=== PATIENT | male | born 1990 | race Caucasian/White ===

== ENCOUNTER 2018-03-01 10:13 | Emergency (ER) | payer SELFPAY ==
[2018-03-01 10:27] VITALS: TEMP 98.5
[2018-03-01] MEDS ORDERED: IPRATROPIUM/ALBUTEROL 3 ML VIAL NEB ONE (10:28)
--- NOTE | 2018-03-01 10:31 | ED.PDOC ---
History of Present Illness - General Chief Complaint: Respiratory Problem Stated Complaint: sore throat, cough Time Seen by Provider: 03/01/18 10:27 Source: patient Exam Limitations: no limitations - History of Present Illness Comments: patient comes in today for cough, congestion, chest pain with cough, and temp up to 102. Patient states he started getting sick last night. He has positive body aches but no nausea, vomiting, or diarrhea. He does have sore throat. Patient otherwise is healthy although he does smoke tobacco products. Patient states she's been smoking now for about a month but normally will only had a couple of cigarettes a day. Patient does not have any past medical history and has no allergies. He takes no medications. Timing/Duration: yesterday Cough Quality/Degree: productive cough Possible Cause: no prior episodes Improving Factors: nothing Worsening Factors: nothing Associated Symptoms: cough, fever/chills, nasal congestion, sore throat Respiratory Risk Factors: no cause identified Allergies/Adverse Reactions: Allergies NO KNOWN ALLERGY Allergy (Verified 06/27/15 13:42) Home Medications: Ambulatory Orders Albuterol Inhaler [Ventolin Hfa Inhaler] 108 mcg IN TID 10 Days #1 inh 03/01/18 Prednisone [Deltasone] 20 mg PO DAILY 5 Days #5 tab 03/01/18 Review of Systems - Review of Systems Constitutional: States: fever, malaise EENTM: States: nose congestion, throat pain. Denies: eye pain Respiratory: States: cough. Denies: short of breath, wheezing Cardiology: States: chest pain. Denies: edema, palpitations Gastrointestinal/Abdominal: States: no symptoms reported. Denies: abdominal pain, diarrhea, nausea, vomiting Genitourinary: States: no symptoms reported Musculoskeletal: States: no symptoms reported Past Medical History (General) - Patient Medical History Hx Asthma: No Hx Diabetes: No Surgical History: no surgical history - Vaccination History Hx Tetanus, Diphtheria Vaccination: No Hx Influenza Vaccination: No Hx Pneumococcal Vaccination: No - Social History Hx Tobacco Use: Yes Hx Chewing Tobacco Use: No Hx Alcohol Use: Yes - occasional Hx Substance Use: No Hx Substance Use Treatment: No Hx Depression: No - Female History Patient : No Family Medical History - Family History Mother Living Status: Still Living Hx Family;Other: none Physical Exam - Physical Exam General Appearance: Alert, No apparent distress Eye Exam: bilateral normal ENT Exam: TMs normal, nasal congestion, nasal drainage, pharyngeal erythema - no exudate Neck: non-tender, full range of motion, supple, lymphadenopathy (R), lymphadenopathy (L) Respiratory: no accessory muscle use, rhonchi - bilateraly with occasional wheezes no crackles Cardiovascular/Chest: normal peripheral pulses, regular rate, rhythm, no edema, no gallop, no murmur Gastrointestinal/Abdominal: normal bowel sounds, non tender, soft Extremity: normal range of motion, non-tender, normal inspection Neurologic: alert, oriented x 3 Progress - Progress Progress: 03/01/18 11:09 lungs cleared after treatment, negative strep and flu test. Discussed smoking cessation and viral nature of illness - Results/Orders Results/Orders: 03/01/18 10:40 STREP A SCREEN CULTURE Stat Laboratory Results Group A Strep Rapid Negative (NEGATIVE) 03/01/18 10:40 Microbiology 03/01/18 10:40 Nose - Final Departure - Departure Clinical Impression: Upper respiratory infection Qualifiers: URI type: unspecified viral URI Qualified Code(s): J06.9 - Acute upper respiratory infection, unspecified Disposition: Discharge to Home or Self Care Condition: Good Departure Forms: ED Discharge - Pt. Copy, Patient Portal Self Enrollment Diet: regular diet Prescriptions: Albuterol Inhaler [Ventolin Hfa Inhaler] 108 mcg IN TID 10 Days #1 inh Prednisone [Deltasone] 20 mg PO DAILY 5 Days #5 tab Home Medications: Ambulatory Orders Albuterol Inhaler [Ventolin Hfa Inhaler] 108 mcg IN TID 10 Days #1 inh 03/01/18 Prednisone [Deltasone] 20 mg PO DAILY 5 Days #5 tab 03/01/18 Additional Instructions: stop smoking. Return to ER for shortness of breath, worsening of symptoms. Follow up with PCP in clinic if fever does not resolve in 3 days.
[2018-03-01 11:28] VITALS: BP 120/88; O2SAT 98
== END 2018-03-01 11:18 | disposition home or self-care (01) ==
LOC: ER 10:13
DX: J06.9 Acute upper respiratory infection, unspecified (principal); F17.200 Nicotine dependence, unspecified, uncomplicated
CPT/HCPCS: 87070; 87502; 87880; 94640; J7620

== ENCOUNTER → 2019-11-02 | Outpatient (CLI) | payer BC | LOC: YCFC.O 12:36 | PROVIDERS: ATTEND Nurse Practitioner | DX: Z03.818 Encounter for observation for suspected exposure to other biological agents ruled out (principal) ==

== ENCOUNTER 2020-06-18 05:10 | Emergency (ER) | payer SELFPAY ==
[2020-06-18] MEDS ORDERED: ONDANSETRON ODT 8 MG TAB SL ONE (05:26)
[2020-06-18] MEDS ORDERED: ALUM & MAG HYDROX-SIMETHICONE 30 ML, LIDOCAINE VISCOUS 2% 15 ML PO ONE ×2 (05:26)
[2020-06-18] MEDS ORDERED: FAMOTIDINE 20 MG TAB PO ONE (05:26)
[2020-06-18 05:27] VITALS: TEMP 98.2
--- NOTE | 2020-06-18 05:30 | ED.PDOC ---
History of Present Illness - General Chief Complaint: Abdominal Pain Stated Complaint: abd pain Time Seen by Provider: 06/18/20 05:22 Source: patient Exam Limitations: no limitations - History of Present Illness Initial Comments: The patient is a 29-year-old male presented emergency room in police custody for lab draw. Since in custody he is reporting that he is having some epigastric discomfort. Mild nausea but no vomiting. He has had some gastritis type symptoms intermittently for the past 3 to 4 weeks. No fever. No rash. No trauma. Timing/Duration: getting worse, intermittent Severity: moderate Improving Factors: nothing Worsening Factors: nothing Associated Symptoms: malaise, nausea/vomiting Allergies/Adverse Reactions: Allergies NO KNOWN ALLERGY Allergy (Verified 06/27/15 13:42) Home Medications: Ambulatory Orders Albuterol Inhaler [Ventolin Hfa Inhaler] 108 mcg IN TID 10 Days #1 inh 03/01/18 Prednisone [Deltasone] 20 mg PO DAILY 5 Days #5 tab 03/01/18 Famotidine 20 mg PO BID #60 tab 06/18/20 Review of Systems - Review of Systems Constitutional: States: no symptoms reported EENTM: States: no symptoms reported Respiratory: States: no symptoms reported Cardiology: States: no symptoms reported Gastrointestinal/Abdominal: States: abdominal pain, nausea Genitourinary: States: no symptoms reported Musculoskeletal: States: no symptoms reported Skin: States: no symptoms reported Neurological: States: anxiety Endocrine: States: no symptoms reported Hematologic/Lymphatic: States: no symptoms reported All other Systems: No Change from Baseline Past Medical History (General) - Patient Medical History Hx Asthma: No Hx Diabetes: No - Vaccination History Hx Tetanus, Diphtheria Vaccination: Yes Hx Influenza Vaccination: No Hx Pneumococcal Vaccination: No Immunizations Up to Date: Yes - Social History Hx Tobacco Use: No Hx Chewing Tobacco Use: No Hx Alcohol Use: Yes Hx Substance Use: Yes Hx Substance Use Treatment: No Hx Depression: No - Female History Patient : No Family Medical History - Family History Mother Living Status: Still Living Hx Family;Other: none Physical Exam - Physical Exam General Appearance: Alert, No apparent distress Eye Exam: bilateral normal Ears, Nose, Throat: hearing grossly normal, normal pharynx Neck: full range of motion, supple Respiratory: normal breath sounds, no respiratory distress, no accessory muscle use Cardiovascular/Chest: normal peripheral pulses, no edema, other - Regular rate Peripheral Pulses: radial,right: 2+, radial,left: 2+ Gastrointestinal/Abdominal: soft, other - Epigastric discomfort to palpation. No rebound or peritoneal signs. No palpable mass. Rectal Exam: deferred Back Exam: no CVA tenderness, no vertebral tenderness Extremity: non-tender, normal inspection, no pedal edema, normal capillary refill Neurologic: [employer] II-XII nml as tested, alert, normal mood/affect - The patient is upset about being in police custody., oriented x 3 Skin Exam: normal color Comments: Vital Signs - 8 hr 06/18/20 05:18 Temperature 98.2 F Pulse Rate 68 Pulse Rate [ 68 Right Radial] Respiratory 16 Rate Blood Pressure 131/80 [Right Arm] O2 Sat by Pulse 98 Oximetry Progress - Progress Progress: 06/18/20 05:32 The patient is a 29-year-old male presented emergency room in police custody. The patient is having symptoms of acute gastritis. The patient will be treated with famotidine, a GI cocktail and Zofran. He will be written for famotidine for twice daily use for the next month. Needs to maintain a bland diet. He needs to avoid any alcohol or substance abuse. He needs to keep well- hydrated. He needs to follow back up with his primary care doctor in a couple of weeks. ER warnings are given. [email or web address] [id number] - Results/Orders Results/Orders: Random fingerstick glucose was 120. Departure - Departure Clinical Impression: Acute gastritis Qualifiers: Gastritis type: unspecified gastritis Gastritis bleeding: without bleeding Qualified Code(s): K29.00 - Acute gastritis without bleeding Disposition: Detention Condition: Fair Departure Forms: ED Discharge - Pt. Copy, Patient Portal Self Enrollment Instructions: DI for Abdominal Pain-Adult, Gastritis (DC) Diet: bland diet Activity: increase activity as tolerated Referrals: Jen Germain FNP [Primary Care Provider] - 1-2 Weeks Prescriptions: Famotidine 20 mg PO BID #60 tab Home Medications: Ambulatory Orders Albuterol Inhaler [Ventolin Hfa Inhaler] 108 mcg IN TID 10 Days #1 inh 03/01/18 Prednisone [Deltasone] 20 mg PO DAILY 5 Days #5 tab 03/01/18 Famotidine 20 mg PO BID #60 tab 06/18/20 Additional Instructions: The patient is a 29-year-old male presented emergency room in police custody. The patient is having symptoms of acute gastritis. The patient will be treated with famotidine, a GI cocktail and Zofran. He will be written for famotidine for twice daily use for the next month. Needs to maintain a bland diet. He needs to avoid any alcohol or substance abuse. He needs to keep well- hydrated. He needs to follow back up with his primary care doctor in a couple of weeks. ER warnings are given.
[2020-06-18 06:06] VITALS: BP 132/76; O2SAT 99
== END 2020-06-18 05:50 ==
LOC: ER 05:10
DX: K29.00 Acute gastritis without bleeding (principal)